=== PATIENT | female | born 1985 | race Caucasian/White ===

== ENCOUNTER 2020-01-25 20:56 | Emergency (ER) | payer SELFPAY ==
[~2020-01-25] VITALS: Ht 167.6 cm; Wt 88.0 kg
[~2020-01-25 20:56] MED LIST: FLOMAX0.4 MG PO; IBUPROFEN200 MG PO; NORCO 5-325 TA1 EACH PO; ZOFRAN ODT8 MG PO
[2020-01-25] MEDS ORDERED: LEXAPRO10 MG PO (21:10)
[2020-01-25] MEDS ORDERED: NORCO 5-325 TA1 EACH PO (21:49)
== END 2020-01-25 22:21 | disposition home or self-care (01) ==
LOC: ED 20:56
DX: S43.102A Unspecified dislocation of left acromioclavicular joint, initial encounter (principal); F17.200 Nicotine dependence, unspecified, uncomplicated; W01.0XXA Fall on same level from slipping, tripping and stumbling without subsequent striking against object, initial encounter
CPT/HCPCS: 73030; 99283-25